=== PATIENT | male | born 1955 | race Two or more races ===

== ENCOUNTER 2024-09-07 03:18 | Inpatient (IN) | payer OTHER, MEDICAID ==
[~2024-09-07] VITALS: Ht 160 cm; Wt 70.0 kg
--- NOTE | 2024-09-07 03:49 | ED.PDOC ---
SOB-HPI HPI Comments 68 year old male brought in by EMS presents to the ED with a chief complaint of shortness of breath onset 2 days. Patient states he has been experiencing shortness of breath for the past 2 days, worsens when he is laying down and slightly improves when he sits up. Patient is also experiencing cough and chest pain, described as a sharp sensation. He is currently taking Lasix 20 mg daily. PMHx CHF. Denies fever, chills, nausea, vomiting, diarrhea, dizziness, blurry vision. No other symptoms or modifying factors present at this time. Chief Complaint: Shortness of Breath Time Seen by MD: 03:40 Reviewed notes: Medications, Allergies Information Source: Patient, Emergency Med Personnel Mode of Arrival: EMS Severity: Moderate Timing: Days Duration: Since onset Context: While Asleep PE Risk Factors: None History of: CHF Prehospital treatment: None Modifying Factors: Sitting up Associated Signs and Symptoms: Cough, Chest Pain Quality: Sharp Radiation: No Radiation If cough with SOB: Productive Past Medical History PAST MEDICAL HISTORY: CHF Surgical History: Denies all surgeries Family History Family History: Unknown Social History Smoker: Non-Smoker Alcohol: Denies ETOH Use Drugs: Denies Drug Use Lives In: Home Constitutional: denies: chills, diaphoresis, fatigue, fever, malaise, sweats, weakness, others EENTM: denies: blurred vision, double vision, ear bleeding, ear discharge, ear drainage, ear pain, ear ringing, eye pain, eye redness, hearing loss, mouth pain, mouth swelling, nasal discharge, nose bleeding, nose congestion, nose pain, photophobia, tearing, throat pain, throat swelling, voice changes, others Respiratory: reports: cough, shortness of breath; denies: hemoptysis, orthopnea, SOB at rest, SOB with excertion, stridor, wheezing, others Cardiovascular: reports: chest pain; denies: dizzy spells, diaphoresis, Dyspnea on exertion, edema, irregular heart beat, left arm pain, lightheadedness, palpitations, PND, syncope, others Gastrointestinal: denies: abdomen distended, abdominal pain, blood streaked bowels, constipated, diarrhea, dysphagia, difficulty swallowing, hematemesis, melena, nausea, poor appetite, poor fluid intake, rectal bleeding, rectal pain, vomiting, others Genitourinary: denies: burning, dysuria, flank pain, frequency, hematuria, incontinence, penile discharge, penile sore, pain, testicle pain, testicle swelling, urgency, others Neurological: denies: dizziness, fainting, headache, left sided numbness, left sided weakness, numbness, paresthesia, pre-existing deficit, right sided numbness, right sided weakness, seizure, speech problems, tingling, tremors, weakness, others Musculoskeletal: denies: back pain, gout, joint pain, joint swelling, muscle pain, muscle stiffness, neck pain, others Integumetry: denies: bruises, change in color, change in hair/nails, dryness, laceration, lesions, lumps, rash, wounds, others Allergic/Immunocompromised: denies: Difficulty Healing, Frequent Infections, Hives, Itching, others Hematologic/Lymphatic: denies: anemia, blood clots, easy bleeding, easy bruising, swollen glands, others Endocrine: denies: excessive hunger, excessive sweating, excessive thirst, excessive urination, flushing, intolerance to cold, intolerance to heat, unexplained weight gain, unexplained weight loss, others Psychiatric: denies: anxiety, bipolar disorder, depression, hopeless, panic disorder, schizophrenia, sleepless, suicidal, others All Other Systems: Reviewed and Negative Physical Exam General Appearance: No Apparent Distress, Normal HEENT: Normal ENT Inspection, Pharynx Normal, TMs Normal Neck: Full Range of Motion, Non-Tender, Normal, Normal Inspection Respiratory: Chest Non-Tender, Lungs Clear, No Accessory Muscle Use, No Respiratory Distress, Normal Breath Sounds Cardiovascular: No Edema, No JVD, No Murmur, No Gallop, Normal Peripheral Pulses, Tachycardia Breast Exam: Deferred Gastrointestinal: No Organomegaly, Non Tender, No Pulsatile Mass, Normal Bowel Sounds, Soft Genitalia: Deferred Pelvic: Deferred Rectal: Deferred Extremities: No calf tenderness, Normal capillary refill, Normal inspection, Normal range of motion, Non-tender, No pedal edema Musculoskeletal : Apperance: Normal Neurologic: Alert, manager php II-XII nml as Tested, No Motor Deficits, Normal Affect, Normal Mood, No Sensory Deficits Cerebellar Function: Normal Reflexes: Normal Skin: Dry, Normal Color, Warm Lymphatic: No Adenopathy Was a procedure done? Was a procedure done?: No Differential Dx Differential Diagnosis: CHF, COPD, Myocardial infarction, Pneumonia, URI X-Ray, Labs, Meds, VS Vital Signs Date Time Temp Pulse Resp B/P (MAP) Pulse Ox O2 Delivery O2 Flow Rate FiO2 09/07/24 03:38 83 09/07/24 03:31 97.6 86 18 136/83 (100) 98 Lab Test 09/07/24 06:49 09/07/24 04:58 09/07/24 03:40 Range/Units Troponin I High Sensitivity 45 47 46 </=54 ng/L White Blood Count 9.4 4.4-10.8 10^3/uL Red Blood Count 3.81 L 4.5-5.90 10^6/uL Hemoglobin 10.6 L 13.5-17.5 g/dL Hematocrit 30.9 L 41.0-53.0 % Mean Corpuscular Volume 81.2 80.0-100.0 fL Mean Corpuscular Hemoglobin 27.7 L 28.0-32.0 pg Mean Corpuscular Hemoglobin Concent 34.2 32.0-36.0 g/dL Red Cell Distribution Width 17.5 H 11.8-14.3 % Platelet Count 206 140-450 10^3/uL Mean Platelet Volume 7.2 6.9-10.8 fL Neutrophils (%) (Auto) 73.4 37.0-80.0 % Lymphocytes (%) (Auto) 16.0 10.0-50.0 % Monocytes (%) (Auto) 6.9 0.0-12.0 % Eosinophils (%) (Auto) 2.8 0.0-7.0 % Basophils (%) (Auto) 0.9 0.0-2.0 % Neutrophils # (Auto) 6.9 1.6-8.6 10 ^3/uL Lymphocytes # (Auto) 1.5 0.4-5.4 10 ^3/uL Monocytes # (Auto) 0.6 0-1.3 10 ^3/uL Eosinophils # (Auto) 0.3 0-0.8 10 ^3/uL Basophils # (Auto) 0.1 0-0.2 10 ^3/uL Nucleated Red Blood Cells 0.0 % Sodium Level 140 136-145 mmol/L Potassium Level 4.1 3.5-5.1 mmol/L Chloride Level 109 H 98-107 mmol/L Carbon Dioxide Level 19 L 20-31 mmol/L Anion Gap 12 5-15 Blood Urea Nitrogen 50 H 9-23 mg/dL Creatinine 3.22 H 0.700-1.30 mg/dL Glomerular Filtration Rate Calc 20 >90 mL/min BUN/Creatinine Ratio 15.5 10.0-20.0 Serum Glucose 103 74-106 mg/dL Calcium Level 9.8 8.7-10.4 mg/dL Magnesium Level 2.1 1.6-2.6 mg/dL B-Type Natriuretic Peptide 719.33 0-100 pg/mL Thyroid Stimulating Hormone (TSH) 2.38 0.55-4.78 uIU/mL Time of 1ST Reevaluation: 04:10 Reevaluation 1ST: Unchanged Patient Education/Counseling: Diagnosis, Treatment, Prognosis Family Education/Counseling: No Family Present Additional Information The following tests were ordered, and results were reviewed by me: BMP, CBC, BNP, TROP -x3, XY CHEST Additional Information was gathered from interviewing the following independent historians: EMS I reviewed and agreed with the following test results read by other providers: XY CHEST I discussed treatment and results with medical personnel and patient Departure 1 Departure Time of Disposition: 03:01 (Patient with worsening acute on chronic systolic dysfunction. We will admit patient for further workup) Impression: Primary Impression: Acute on chronic systolic (congestive) heart failure Additional Impression: Shortness of breath Disposition: ADMITTED INPATIENT Admit to: Med Surg Condition: Serious Critical Care Note Critical Care Time?: No Stability Stability form required: No Heart Score Heart Score: Heart Score Response (Comments) Value History Slightly Suspicious 0 EKG Normal 0 Age >65 2 Risk Factors >3 or Hx ASHD 2 Troponin 1-2 x's Normal limit 1 Total 5 I personally scribed for MARLEN SETH MD ([email or web address]) on 09/07/24 at 03:49. Electronically submitted by Monica Zapata ([email or web address]). I personally scribed for MARLEN SETH MD ([email or web address]) on 09/07/24 at 03:58. Electronically submitted by Monica Zapata ([email or web address]). I personally scribed for MARLEN SETH MD ([email or web address]) on 09/07/24 at 03:59. Destiny ctronically submitted by Monica Zapata ([email or web address]). MARLEN SETH MD Sep 07, 2024 03:49
[2024-09-07 03:50] LABS: Basophils # (auto) 0.1 10 ^3/uL (0-0.2); Basophils % (auto) 0.9 % (0.0-2.0); Eosinophils # (auto) 0.3 10 ^3/uL (0-0.8); Eosinophils % (auto) 2.8 % (0.0-7.0); Hematocrit 30.9 % (41.0-53.0); Hemoglobin 10.6 g/dL (13.5-17.5); Lymphocytes # (auto) 1.5 10 ^3/uL (0.4-5.4); Mean Corpuscular Hemoglobin 27.7 pg (28.0-32.0); Mean Corpuscular Hgb Conc. 34.2 g/dL (32.0-36.0); Mean Corpuscular Volume 81.2 fL (80.0-100.0); Monocytes # (auto) 0.6 10 ^3/uL (0-1.3); Monocytes % (auto) 6.9 % (0.0-12.0); Neutrophils # (auto) 6.9 10 ^3/uL (1.6-8.6); Neutrophils % (auto) 73.4 % (37.0-80.0); Platelet Count (auto) 206 10^3/uL (140-450); Red Blood Cells 3.81 10^6/uL (4.5-5.90); Red Cell Distribution Width 17.5 % (11.8-14.3); White Blood Cell 9.4 10^3/uL (4.4-10.8)
[2024-09-07 04:36] LABS: Potassium 4.1 mmol/L (3.5-5.1); Sodium 140 mmol/L (136-145)
[2024-09-07 04:37] LABS: Anion Gap 12 (5-15); Calcium 9.8 mg/dL (8.7-10.4)
[2024-09-07 04:42] LABS: BUN/Creatinine Ratio 15.5 (10.0-20.0); Glucose 103 mg/dL (74-106)
[2024-09-07 04:43] LABS: Blood Urea Nitrogen 50 mg/dL (9-23); Carbon Dioxide 19 mmol/L (20-31); Chloride 109 mmol/L (98-107)
[2024-09-07] MEDS: FUROSEMIDE 40 MG/4 ML VIAL IV ONE (05:45)
--- NOTE | 2024-09-07 06:07 | DVH ---
CHEST RADIOGRAPH Indication: SOB Technique: Single frontal view of the chest was obtained Comparison: None FINDINGS: Lines and Tubes: None Lungs: Pulmonary interstitial prominence. No focal consolidation. Pleura: No effusion. No pneumothorax. Cardiomediastinal contours: Cardiomegaly. Bones: No acute osseous abnormality. Status post median sternotomy. IMPRESSION: 1. Interstitial pulmonary edema. 2. Cardiomegaly.
--- NOTE | 2024-09-07 07:01 | DVHHP2 ---
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 Did ask patient if he takes any blood thinners for his issue he did not declines any medication. He does states that he had a called paramedics because he has been shortness of the breath he states laying down makes his symptoms worse in his he states he had some calf pain and leg swelling. He denies any chest pain. Patient states he was very frustrated while sitting in his wheelchair he might need to go home. This speak with the patient was told him about the need to stay in the hospital due to the shortness of the breath and that he is in heart failure he needs to have diuresed for Lasix. Patient states laying down in his bed makes his symptoms worse with sitting up right makes his symptoms better. When evaluating patient's labs and ED from the ER patient was given Lasix hemoglobin was 10.6 30.9 creatinine is 3.22 and 80 troponin was negative BNP was 7 one four chest x-ray showed edema a nd cardiomegaly. With these findings we will admit patient and ask for Cardiology evaluation Past Medical History See HPI above Past Surgical History Valve replacement stents x3 Family History Reviewed, non-contributory to the management of this case. Past Social History The patient lives at home, denies smoking, alcohol or illicit drugs abuse. Review of Systems Constitutional: No: Fever, Chills, Sweats, Weakness, Malaise, Other Eyes: No: Pain, Vision change, Conjunctivae inflammation, Eyelid inflammation, Other, Redness ENT: No: Ear pain, Ear discharge, Nose pain, Nose discharge, Nose congestion, Mouth pain, Mouth swelling, Throat pain, Throat swelling, Other Respiratory: Shortness of breath, SOB with excertion; No: Cough, Dry, Wheezing, Hemoptysis, Pleuritic Pain, Sputum, Wheezing, Other Cardiovascular: Edema; No: Chest Pain, Palpitations, Orthopnea, Paroxysmal Noc. Dyspnea, Lt Headedness, Other Gastrointestinal: No: Nausea, Vomiting, Abdominal Pain, Diarrhea, Constipation, Melena, Hematochezia, Other Genitourinary: No Dysuria, No Frequency, No Incontinence, No Hematuria, No Retention, No Other Musculoskeletal: No: other, neck pain, shoulder pain, arm pain, back pain, hand pain, leg pain, foot pain Skin: No: Rash, Lesions, Jaundice, Bruising, Other Neurological: No: Weakness, Numbness, Incoordination, Change in speech, Confusion, Seizures, Other Allergies: Coded Allergies: Iohexol (Verified Allergy, Unknown, 09/07/24) Exam Vital Signs Vital Signs Date Time Temp Pulse Resp B/P (MAP) Pulse Ox O2 Delivery O2 Flow Rate FiO2 09/07/24 03:38 83 09/07/24 03:31 97.6 18 136/83 (100) 98 General Appearance: Alert, Oriented X3, Cooperative, No acute distress HEENT: Atraumatic, PERRLA, EOMI, Mucous membr. moist/pink Respiratory: Other (Coarse rales throughout) Cardiovascular: Regular rate, Normal S1, Normal S2, No murmurs Abdominal: Normal bowel sounds, Soft, No tenderness, No hepatospenomegaly, No masses Extremities: No clubbing, No cyanosis, No edema, Normal pulses, No tenderness/swelling Skin: No rashes, No breakdown, No significant lesion Neuro: Normal speech, Strength at 5/5 X4 ext, Normal tone, Sensation intact, Cranial nerves 3-12 NL Psych/Mental Status: Mental status NL, Mood NL Labs/Xrays Chest x-ray shows pulmonary edema and cardiomegaly I reviewed labs, imaging CT scan abdomen pelvis, EKG and all diagnostic studies on this patient from ED records and the medical chart Labs Test 09/07/24 04:58 09/07/24 03:40 Range/Units Troponin I High Sensitivity 47 </=54 ng/L White Blood Count 9.4 4.4-10.8 10^3/uL Red Blood Count 3.81 L 4.5-5.90 10^6/uL Hemoglobin 10.6 L 13.5-17.5 g/dL Hematocrit 30.9 L 41.0-53.0 % Mean Corpuscular Volume 81.2 80.0-100.0 fL Mean Corpuscular Hemoglobin 27.7 L 28.0-32.0 pg Mean Corpuscular Hemoglobin Concent 34.2 32.0-36.0 g/dL Red Cell Distribution Width 17.5 H 11.8-14.3 % Platelet Count 206 140-450 10^3/uL Mean Platelet Volume 7.2 6.9-10.8 fL Neutrophils (%) (Auto) 73.4 37.0-80.0 % Lymphocytes (%) (Auto) 16.0 10.0-50.0 % Monocytes (%) (Auto) 6.9 0.0-12.0 % Eosinophils (%) (Auto) 2.8 0.0-7.0 % Basophils (%) (Auto) 0.9 0.0-2.0 % Neutrophils # (Auto) 6.9 1.6-8.6 10 ^3/uL Lymphocytes # (Auto) 1.5 0.4-5.4 10 ^3/uL Monocytes # (Auto) 0.6 0-1.3 10 ^3/uL Eosinophils # (Auto) 0.3 0-0.8 10 ^3/uL Basophils # (Auto) 0.1 0-0.2 10 ^3/uL Nucleated Red Blood Cells 0.0 % Sodium Level 140 136-145 mmol/L Potassium Level 4.1 3.5-5.1 mmol/L Chloride Level 109 H 98-107 mmol/L Carbon Dioxide Level 19 L 20-31 mmol/L Anion Gap 12 5-15 Blood Urea Nitrogen 50 H 9-23 mg/dL Creatinine 3.22 H 0.700-1.30 mg/dL Glomerular Filtration Rate Calc 20 >90 mL/min BUN/Creatinine Ratio 15.5 10.0-20.0 Serum Glucose 103 74-106 mg/dL Calcium Level 9.8 8.7-10.4 mg/dL B-Type Natriuretic Peptide 719.33 0-100 pg/mL Assessment/Plan Assessment/Plan Acute on chronic diastolic systolic heart failure NYHA class III cxr shows pulmonary edema bnp elevated >700 ordered echo fu results ordered Lasix, metoprolol, asa. atorvastatin Plavix Jardiance Entresto strict i/o's consider bipap if worsening resp distress ordered cards consult fu recs restrict sodium daily wt acute on chronic ckd stage 3 can be worsening in heart failure ordered strict i/o's ordered urine sodium and crea to check fena acute copd exacerbation ordered solumedrol ordered albuterol and atrovent prn cough ordered protonix for now chronic problems dm ISS htn hld mi x3 with stent placement chronic anemia monitor for downtrend cva with left side weakness valve replacement severe aortic stenosis s/p mechanical aortic valve replacement (on Coumadin), history of hepatitis C, liver cirrhosis, chronic pain obesity fen/ppx diet hl scd heparin no gi ppx since no hx of gerd or gi bleed plan admit to tele cards consult Plan discussed with: Patient Date of Service: Sep 07, 2024 Billing Provider: CHIVO SANTANA DNP Common Visit Codes: 43376-IIAQVET INP/OBS CARE (HIGH) CHIVO SANTANA DNP Sep 07, 2024 07:01
[2024-09-07] MEDS ORDERED: DEXTROSE (50%) 50ML SYRG IV PRN (08:00)
[2024-09-07] MEDS ORDERED: NITROGLYCERIN 0.4 MG SL TAB SL PRN (08:00)
[2024-09-07 09:13] VITALS: BP 110/63; PULSE 88; RESP 16; TEMP 98.3; O2SAT 96
[2024-09-07] MEDS ORDERED: ENOXAPARIN SOD 40 MG/0.4 ML SYRINGE SC SCH (10:00)
[2024-09-07] MEDS: METOPROLOL TARTRATE 25 MG TAB PO SCH (10:00)
[2024-09-07] MEDS: ENOXAPARIN SOD 30 MG/0.3 ML SYRINGE SC SCH (10:00)
[2024-09-07 10:41] VITALS: BP 110/63; PULSE 88; RESP 16; TEMP 98.3; O2SAT 96
--- NOTE | 2024-09-07 10:59 | DVHINCON2 ---
Date Seen: Sep 07, 2024 Referring Physician DONAL Griffin Reason for Consultation Acute CHF exacerbation History of Present Illness This is a 68-year-old male patient who presents to emergency room with chief complaint of worsening shortness of breath for three days. He comes to the emergency room for further evaluation. Initial twelve lead electrocardiogram reveals normal sinus rhythm with first-degree AV block. Initial troponin level of 46ng/L with flat trend thereafter. Initial BNP level of 719.33pg/mL. 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 He reports compliance with all of his heart failure medications. He does admit to drinking more fluids than usual within the last week. 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 Scanlon in the outpatient setting. He also follows up at [facility] and is in the process for MitraClip evaluation. Past Medical History Past medical history reviewed. No other significant than mentioned above. Past Surgical History Mechanical aortic valve replacement in 2003 at [facility] Family History: Patient reports no known family medical history. Family History Family history reviewed. Social History Patient reports a prior history of illicit drug use, states been approximately 10 years since he last use any illicit drugs Patient denies any alcohol use Patient denies any tobacco use Allergies: Coded Allergies: Iohexol (Verified Allergy, Unknown, 09/07/24) Home Meds Home medications reviewed. Current Medications Current Medications Medications (Trade) Dose Ordered Sig/Ha Route PRN Reason Start Time Stop Time Status Last Admin Enoxaparin Sodium (Lovenox) 40 mg DAILY SC 09/07/24 10:00 09/07/24 08:43 DC Atorvastatin Calcium (Lipitor) 20 mg HS PO 09/07/24 22:00 Metoprolol Tartrate (Lopressor Tablet) 12.5 mg BID PO 09/07/24 10:00 Empaglifozin (Jardiance) 10 mg DAILY PO 09/07/24 10:00 Furosemide (Lasix Injection) 40 mg BIDD IV 09/07/24 08:39 Spironolactone (Aldactone) 25 mg DAILY PO 09/07/24 10:00 Diagnostic Test (Pha) (Accu-Chek Comfort Curve T) 1 strip ACHS 09/07/24 11:30 Insulin Human Regular (InsuLIN R) HS SC 09/07/24 22:00 Insulin Human Regular (InsuLIN R) AC SC 09/07/24 11:30 Dextrose 50 ml UD PRN IV Blood Sugar LESS THAN 60 09/07/24 08:00 Nitroglycerin (Ntrostat Sublingual) 0.4 mg Q5MINP PRN SL FOR CHEST PAIN 09/07/24 08:00 Albuterol (Ventolin Medneb) 2.5 mg Q4HPRN PRN NEB SHORTNESS OF BREATH 09/07/24 08:00 Ipratropium [place] (Atrovent Medneb) 0.5 mg Q4HPRN PRN NEB SHORTNESS OF BREATH 09/07/24 08:00 Aspirin 81 mg DAILY PO 09/07/24 10:00 Enoxaparin Sodium (Lovenox) 30 mg DAILY SC 09/07/24 10:00 Review of Systems Constitutional: No symptom reported Ears, Nose, & Throat: No symptom reported Eyes: No symptom reported Neurological: No symptoms reported Pulmonary/Respiratory: Shortness of breath Cardiovascular: No symptom reported Gastrointestinal: No symptom reported Genitourinary: No symptom reported Musculoskeletal: No symptom reported Skin: No symptom reported Psychiatric: No symptom reported Endocrine: No symptom reported Hematologic/Lymphatic: No symptom reported Vital Signs Vital Signs Date Time Temp Pulse Resp B/P (MAP) Pulse Ox O2 Delivery O2 Flow Rate FiO2 09/07/24 10:41 98.3 88 16 110/63 96 0.0 21 98.3 09/07/24 09:13 Room Air* Physical Exam General Appearance: Cooperative. Well-developed. Well-nourished. No acute distress. Pulmonary/Respiratory: Coarse throughout Cardiovascular/Chest: Regular rate and rhythm. Peripheral Pulses: 2+ Radial (R). 2+ Radial (L). Abdominal Exam: Normal bowel sounds. Ankle Exam: 1+ pitting edema to bilateral ankles Lower extremities: Negative lower extremity edema Neuro/Mental Status: A/OX4, coherent. Thoughts/Psych: Normal thought pattern. Appropriate mood and affect. Good judgment and insight. Appearance: No acute distress. Skin Exam: Normal inspection. Normal color. Warm and dry. Labs/Diagnostic Data Labs Test 09/07/24 10:36 09/07/24 03:40 Range/Units White Blood Count 9.4 4.4-10.8 10^3/uL Red Blood Count 3.81 L 4.5-5.90 10^6/uL Hemoglobin 10.6 L 13.5-17.5 g/dL Hematocrit 30.9 L 41.0-53.0 % Mean Corpuscular Volume 81.2 80.0-100.0 fL Mean Corpuscular Hemoglobin 27.7 L 28.0-32.0 pg Mean Corpuscular Hemoglobin Concent 34.2 32.0-36.0 g/dL Red Cell Distribution Width 17.5 H 11.8-14.3 % Platelet Count 206 140-450 10^3/uL Mean Platelet Volume 7.2 6.9-10.8 fL Neutrophils (%) (Auto) 73.4 37.0-80.0 % Lymphocytes (%) (Auto) 16.0 10.0-50.0 % Monocytes (%) (Auto) 6.9 0.0-12.0 % Eosinophils (%) (Auto) 2.8 0.0-7.0 % Basophils (%) (Auto) 0.9 0.0-2.0 % Neutrophils # (Auto) 6.9 1.6-8.6 10 ^3/uL Lymphocytes # (Auto) 1.5 0.4-5.4 10 ^3/uL Monocytes # (Auto) 0.6 0-1.3 10 ^3/uL Eosinophils # (Auto) 0.3 0-0.8 10 ^3/uL Basophils # (Auto) 0.1 0-0.2 10 ^3/uL Nucleated Red Blood Cells 0.0 % Sodium Level 140 136-145 mmol/L Potassium Level 4.1 3.5-5.1 mmol/L Chloride Level 109 H 98-107 mmol/L Carbon Dioxide Level 19 L 20-31 mmol/L Anion Gap 12 5-15 Blood Urea Nitrogen 50 H 9-23 mg/dL Creatinine 3.22 H 0.700-1.30 mg/dL Glomerular Filtration Rate Calc 20 >90 mL/min BUN/Creatinine Ratio 15.5 10.0-20.0 Serum Glucose 103 74-106 mg/dL Calcium Level 9.8 8.7-10.4 mg/dL Magnesium Level 2.1 1.6-2.6 mg/dL B-Type Natriuretic Peptide 719.33 0-100 pg/mL Thyroid Stimulating Hormone (TSH) 2.38 0.55-4.78 uIU/mL Assessment Acute on chronic decompensated HFmrEF, NYHA class III Severe aortic stenosis status post mechanical aortic valve replacement (on Coumadin) History myocardial infarction Moderately severe mitral valve regurgitation Moderately severe tricuspid valve regurgitation Hypertension Hyperlipidemia COPD Chronic kidney disease Type 2 diabetes mellitus CVA with left-sided deficit History of illicit drug use Obesity Plan/Recommendation We will continue with the following plan/recommendations (Dr. Jacques): * Echocardiogram from 07/27/24 reveals EF 45%, RVSP 54 mmHg * Moderately severe mitral valve regurgitation * Moderately severe tricuspid valve regurgitation * Diuresis as tolerated * GDMT for CHF as tolerated * Continue Coumadin, maintain therapeutic INR level (2-3) * Lipid lowering agent * Cardiac surveillance Patient seen and examined in the emergency room holding area with . Continue with medical management. Thank you for allowing us to care for this patient. Please call with any questions or concerns. Critical care time spent: 40 minutes This medical document was created using an electronic medical record system with voice recognition software and computerized dictation system. Although this document has been carefully reviewed, there might still be some phonetic and typographical errors. Occasional wrong-word or ``sound-alike substitutions may have occurred due to the inherent limitations of voice recognition software. These areas are purely typographical due to imperfections of the software programs and do not reflect any compromise in the patient's medical care. Please read the chart carefully and recognize, using context, where these substitutions have occurred. Plan discussed with: Patient NYHA Physical activity limitations: Class3(Marked) ordinary (activity causes symtoms) Date of Service: Sep 07, 2024 Billing Provider: XIOMARA JACQUES MD Cardiology Common Codes: 93174-SE[place]CCLE INP/OBS CARE (High) Cardiology Consultation Codes: 42533-[id number] CONSULT <45MIN ALCON MARINO Sep 07, 2024 10:59
[2024-09-07] MEDS: ACCU-CHEK COMFORT CURVE STRIP VI SCH (11:30)
[2024-09-07] MEDS: InsuLIN REG 1unit/0.01ml Soln (100units/ml) SC SCH (11:30)
[2024-09-07] MEDS: IPRATROPIUM BROM 0.5 MG/2.5ML INH SOL NEB PRN (12:22)
[2024-09-07] MEDS: ALBUTEROL SULF 2.5 MG/0.5ML(0.5%) NEB SOLN NEB PRN (12:22)
[2024-09-07 12:57] VITALS: PULSE 75; RESP 18; O2SAT 97
--- NOTE | 2024-09-07 13:00 | ECG ---
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
[2024-09-07] MEDS: ASPirin 81 mg TAB PO SCH (13:42)
[2024-09-07] MEDS: FUROSEMIDE 40 MG/4 ML VIAL IV SCH (13:42)
[2024-09-07] MEDS: SPIRONOLACTONE 25 MG TAB PO SCH (13:43)
[2024-09-07] MEDS: EMPAGLIFLOZIN 10 MG TAB PO SCH (13:44)
--- NOTE | 2024-09-07 13:48 | DVHPN2 ---
Reviewed: Care Plan, H&P, Labs, Medications, Previous Orders, Radiology Changes from previous H/P or p: No Changes Objective Vitals Vital Signs Date Time Temp Pulse Resp B/P (MAP) Pulse Ox O2 Delivery O2 Flow Rate FiO2 09/07/24 13:42 121/61 09/07/24 12:57 75 18 97 09/07/24 12:57 Room Air* 0 21 09/07/24 10:41 98.3 98.3 Medications Current Medications Medications Dose Ordered Sig/Ha Route Start Time Stop Time Status Last Admin Dose Admin Atorvastatin Calcium 20 mg HS PO 09/07/24 22:00 Metoprolol Tartrate 12.5 mg BID PO 09/07/24 10:00 09/07/24 10:00 12.5 MG Empaglifozin 10 mg DAILY PO 09/07/24 10:00 09/07/24 13:44 10 MG Furosemide 40 mg BIDD IV 09/07/24 08:39 09/07/24 13:42 40 MG Spironolactone 25 mg DAILY PO 09/07/24 10:00 09/07/24 13:43 25 MG Diagnostic Test (Pha) 1 strip ACHS 09/07/24 11:30 Insulin Human Regular HS SC 09/07/24 22:00 Insulin Human Regular AC SC 09/07/24 11:30 Dextrose 50 ml UD PRN IV 09/07/24 08:00 Nitroglycerin 0.4 mg Q5MINP PRN SL 09/07/24 08:00 Albuterol 2.5 mg Q4HPRN PRN NEB 09/07/24 08:00 09/07/24 12:22 2.5 MG Ipratropium [place] 0.5 mg Q4HPRN PRN NEB 09/07/24 08:00 09/07/24 12:22 0.5 MG Aspirin 81 mg DAILY PO 09/07/24 10:00 09/07/24 13:42 81 MG Enoxaparin Sodium 30 mg DAILY SC 09/07/24 10:00 09/07/24 10:00 30 MG Laboratory Results Laboratory Tests 09/07/24 03:40 Chemistry Test 09/07/24 03:40 Calcium Level 9.8 mg/dL (8.7-10.4) Magnesium Level 2.1 mg/dL (1.6-2.6) Cardiac Markers Test 09/07/24 03:40 B-Type Natriuretic Peptide 719.33 pg/mL (0-100) HgA1c, TSH Test 09/07/24 03:40 Thyroid Stimulating Hormone (TSH) 2.38 uIU/mL (0.55-4.78) Labs and/or images reviewed: Labs reviewed by me, Image(s) reviewed by me Assessment/Plan Assessment/Plan Stable angina Severe aortic stenosis status post mechanical aortic valve replacement (on Coumadin) cardiology consult appreciated Acute on chronic HFmrEF History myocardial infarction Severe mitral valve regurgitation on evaluation at [facility] for mitral clip Hypertension Hyperlipidemia COPD Chronic kidney disease Type 2 diabetes mellitus CVA with left-sided deficit History of illicit drug use Obesity Echo 40-45 percent ejection fraction Time spent 65 minutes Patient is full code Advanced care planning time 20 minutes Condition guarded Plan discussed with: Patient Date of Service: Sep 07, 2024 Billing Provider: JACLYN SALDIVAR MD Common Visit Codes: 70340-[id number] CARE 30-74 MIN JACLYN SALDIVAR MD Sep 07, 2024 13:48
[2024-09-07] MEDS ORDERED: ATORVASTATIN 20 MG TAB PO SCH (22:00)
[2024-09-07] MEDS ORDERED: InsuLIN REG 1unit/0.01ml Soln (100units/ml) SC SCH (22:00)
--- NOTE | 2024-09-08 08:04 | DVHDS2 ---
Discharge Summary Date of Admission Sep 07, 2024 at 07:51 Date of Discharge: Sep 07, 2024 Admitting Diagnosis Chest pain Wounds: None Labs/Diagnostic Data: Laboratory Results Test 09/07/24 10:36 09/07/24 03:40 Troponin I High Sensitivity 39 ng/L (</=54) White Blood Count 9.4 10^3/uL (4.4-10.8) Red Blood Count 3.81 10^6/uL (4.5-5.90) Hemoglobin 10.6 g/dL (13.5-17.5) Hematocrit 30.9 % (41.0-53.0) Mean Corpuscular Volume 81.2 fL (80.0-100.0) Mean Corpuscular Hemoglobin 27.7 pg (28.0-32.0) Mean Corpuscular Hemoglobin Concent 34.2 g/dL (32.0-36.0) Red Cell Distribution Width 17.5 % (11.8-14.3) Platelet Count 206 10^3/uL (140-450) Mean Platelet Volume 7.2 fL (6.9-10.8) Neutrophils (%) (Auto) 73.4 % (37.0-80.0) Lymphocytes (%) (Auto) 16.0 % (10.0-50.0) Monocytes (%) (Auto) 6.9 % (0.0-12.0) Eosinophils (%) (Auto) 2.8 % (0.0-7.0) Basophils (%) (Auto) 0.9 % (0.0-2.0) Neutrophils # (Auto) 6.9 10 ^3/uL (1.6-8.6) Lymphocytes # (Auto) 1.5 10 ^3/uL (0.4-5.4) Monocytes # (Auto) 0.6 10 ^3/uL (0-1.3) Eosinophils # (Auto) 0.3 10 ^3/uL (0-0.8) Basophils # (Auto) 0.1 10 ^3/uL (0-0.2) Nucleated Red Blood Cells 0.0 % Sodium Level 140 mmol/L (136-145) Potassium Level 4.1 mmol/L (3.5-5.1) Chloride Level 109 mmol/L (98-107) Carbon Dioxide Level 19 mmol/L (20-31) Anion Gap 12 (5-15) Blood Urea Nitrogen 50 mg/dL (9-23) Creatinine 3.22 mg/dL (0.700-1.30) Glomerular Filtration Rate Calc 20 mL/min (>90) BUN/Creatinine Ratio 15.5 (10.0-20.0) Serum Glucose 103 mg/dL (74-106) Calcium Level 9.8 mg/dL (8.7-10.4) Magnesium Level 2.1 mg/dL (1.6-2.6) B-Type Natriuretic Peptide 719.33 pg/mL (0-100) Thyroid Stimulating Hormone (TSH) 2.38 uIU/mL (0.55-4.78) Other Laboratory Tests 09/07/24 03:40 Brief Hx & Hospital Course: Discharge summary dictated after the patient left AMA 68-year-old male with a history of hypertension hypercholesterolemia COPD CKD type 2 diabetes CVA with a left samuel CABG obesity history of illicit drug abuse history of [place] chronic systolic congestive heart failure aortic stenosis status post mechanical aortic valve replacement on Coumadin came in complaining of chest pain troponin negative x3 seen by Cardiology. Echo 40 percent ejection fraction placed on medications for ACS protocol and his home medications were continued patient awaiting mitral clip at [place] for his severe mitral valve regurgitation. While awaiting further stabilization patient decided to leave AMA and left AMA from the emergency room. Consequences and complications including possible explained to the patient and he verbalized understanding. General condition satisfactory at the time of leaving AMA per nurse's notes. Consults/Reason for consult Cardiology Operations or Procedures Echocardiogram Condition at Discharge: Fair Final Diagnosis/Problems List Stable angina Severe aortic stenosis status post mechanical aortic valve replacement (on Coumadin) cardiology consult appreciated Acute on chronic HFmrEF History myocardial infarction Severe mitral valve regurgitation on evaluation at [place] for mitral clip Hypertension Hyperlipidemia COPD Chronic kidney disease Type 2 diabetes mellitus CVA with left-sided deficit History of illicit drug use Obesity Echo 40-45 percent ejection fraction Discharge Disposition: AMA Discharge Instruct/Medications Diet comment: Not applicable Patient left AMA Activity comment: Not applicable Patient left AMA Follow Up/Referral: Not applicable Patient left AMA Medications: Not applicable Patient left AMA 39 (Time taken for discharge summary 39 minutes) Discharge Statement: "Patient was advised to return to the ER or call 911 if any headaches, dizziness, shortness of breath, chest pain, abdominal pain, bleeding, fevers, or worsening of medical condition. Patient was counseled about treatment plan, medications, possible side effects, patientverbalized understanding. All questions were answered to the best of my ability. This discharge took greater then 30 minutes in planning, reviewing documentation, counseling the patient, and discussing with other team members." ASSESSMENT ASSESSMENT Hospital Course Left AMA Assessment Date of Service: Sep 08, 2024 Billing Provider: JACLYN SALDIVAR MD Common Visit Codes: [id number] DISCH DAY >30min JACLYN SALDIVAR MD Sep 08, 2024 08:04
== END 2024-09-07 14:04 | disposition left against medical advice (07) | DRG 291 ==
LOC: ER 03:18 → EDBD 03:18 → TELE 07:51
PROVIDERS: ADMIT Family Medicine; ATTEND Family Medicine
DX: I13.0 Hypertensive heart and chronic kidney disease with heart failure and stage 1 through stage 4 chronic kidney disease, or unspecified chronic kidney disease (principal); I50.43 Acute on chronic combined systolic (congestive) and diastolic (congestive) heart failure; J44.1 Chronic obstructive pulmonary disease with (acute) exacerbation; N17.9 Acute kidney failure, unspecified; Z53.29 Procedure and treatment not carried out because of patient's decision for other reasons; G89.29 Other chronic pain; N18.30 Chronic kidney disease, stage 3 unspecified; E11.22 Type 2 diabetes mellitus with diabetic chronic kidney disease; K74.60 Unspecified cirrhosis of liver; E66.9 Obesity, unspecified; I08.3 Combined rheumatic disorders of mitral, aortic and tricuspid valves; I20.89 Other forms of angina pectoris; E78.00 Pure hypercholesterolemia, unspecified; Z95.2 Presence of prosthetic heart valve; Z79.01 Long term (current) use of anticoagulants; I25.2 Old myocardial infarction; Z95.5 Presence of coronary angioplasty implant and graft; I69.30 Unspecified sequelae of cerebral infarction
CPT/HCPCS: 36415; 71045; 80048; 83735; 83880; 84443; 84484; 85025; 93005; 94640; 96372; 96374; 96375; G0378